=== PATIENT | male | born 1965 | race Hispanic/Latino ===

== ENCOUNTER 2017-01-01 07:41 | Emergency (ER) | payer SELFPAY ==
[2017-01-01] MEDS ORDERED: AFRIN NS ONE (08:53)
--- NOTE | 2017-01-01 09:07 | Emergency Department Report ---
ED ENT HPI - General Chief complaint: Nosebleed Stated complaint: NOSE BLEED Time Seen by Provider: 01/01/17 08:41 Source: patient, EMS, RN notes reviewed Mode of arrival: Ambulatory Limitations: No Limitations - History of Present Illness Initial comments: 51-year-old [place] [facility] [place]. Patient states he began having bleeding last night , but this spontaneously resolved. Bleeding began again this morning. He states the blood is mainly coming out of the right side of his nose. He also reports blood going down the back of his throat. He denies pain. Patient states his had multiple nosebleeds in the past. He states that he has had 2 separate procedures through his groin to stop recurrent nosebleeds. His last procedure was in October 2012. He has had no bleeding since that procedure until last night. Patient states he is on blood thinners due to the presence of a cardiac stent. There are no other complaints. MD complaint: epistaxis -: Sudden, Last night Location: nose Severity: mild Consistency: intermittent Improves with: pressure Worsens with: none Context-Epistaxis: history of similar, other (on Brilinta) - Related Data Allergies Allergy/AdvReac Type Severity Reaction Status Date / Time No Known Allergies Allergy Unverified 01/01/17 07:47 ED Dental HPI - General Chief complaint: Nosebleed Stated complaint: NOSE BLEED Time Seen by Provider: 01/01/17 08:41 Source: patient, EMS Mode of arrival: Ambulatory Limitations: No Limitations - Related Data Allergies Allergy/AdvReac Type Severity Reaction Status Date / Time No Known Allergies Allergy Unverified 01/01/17 07:47 ED Review of Systems ROS: Stated complaint: NOSE BLEED Other details as noted in HPI Comment: All other systems reviewed and negative ENT: epistaxis ED Past Medical Hx - Past Medical History Previous Medical History?: Yes Hx Hypertension: Yes Hx Heart Attack/AMI: Yes (x 2) Hx Diabetes: Yes Hx Psychiatric Treatment: Yes (depression, suicidal) Hx Dementia: Yes - Surgical History Past Surgical History?: Yes Additional Surgical History: cardiac stent, angiography for nosebleeds - Family History Family history: no significant - Social History Smoking Status: Never Smoker Substance Use Type: None ED Physical Exam - General Limitations: No Limitations General appearance: alert, in no apparent distress - Head Head exam: Present: atraumatic, normocephalic - Eye Eye exam: Present: normal appearance, PERRL, EOMI - ENT ENT exam: Present: mucous membranes moist, other (bright red blood noted in the right nostril with oozing noted. Posterior pharynx shows evidence of blood.) - Neck Neck exam: Present: normal inspection, full ROM. Absent: tenderness - Respiratory Respiratory exam: Present: normal lung sounds bilaterally. Absent: respiratory distress - Cardiovascular Cardiovascular Exam: Present: regular rate, normal rhythm, normal heart sounds - Extremities Exam Extremities exam: Present: normal inspection, full ROM - Back Exam Back exam: Present: normal inspection, full ROM - Neurological Exam Neurological exam: Present: alert, oriented X3. Absent: motor sensory deficit - Skin Skin exam: Present: warm, dry, intact ED Course Vital Signs 01/01/17 01/01/17 01/01/17 07:54 07:57 08:55 Temperature 98.1 F Pulse Rate 70 Respiratory 18 18 Rate Blood Pressure Blood Pressure 152/76 [Left] Blood Pressure [Right] O2 Sat by Pulse 98 98 98 Oximetry 01/01/17 01/01/17 01/01/17 09:00 09:08 10:00 Temperature 97.8 F Pulse Rate 74 Respiratory 18 Rate Blood Pressure 125/59 129/60 Blood Pressure [Left] Blood Pressure 116/67 [Right] O2 Sat by Pulse 97 97 98 Oximetry 01/01/17 11:00 Temperature Pulse Rate Respiratory Rate Blood Pressure 132/66 Blood Pressure [Left] Blood Pressure [Right] O2 Sat by Pulse 98 Oximetry ED Medical Decision Making - Lab Data Result diagrams: 01/01/17 09:01 - Medical Decision Making Laboratory results reviewed and discussed with the patient. Patient was initially dosed with nasal Afrin. Direct pressure was applied, but the patient kept removing the gauze packing. He would continue to have occasional oozing of blood from the right nostril. The right nostril was packed using Merocel. This has stopped the bleeding. Patient will be discharged back to [facility] at this time. He'll be instructed to hold his anticoagulated until the packing is removed. Patient is instructed to return to the emergency department in 72 hours for packing removal. - Differential Diagnosis epistaxis, anemia, coagulopathy Critical care attestation.: If time is entered above; I have spent that time in minutes in the direct care of this critically ill patient, excluding procedure time. ED Disposition Clinical Impression: Epistaxis Disposition: [id number] PSY HOSP/PSY UNIT Is pt being admited?: No Condition: Stable Instructions: Epistaxis (ED) Additional Instructions: Do not take your anticoagulate medication until the packing is removed. Return to the emergency department on Thursday, January 04 to have the packing removed. Referrals: PRIMARY CARE, [Primary Care Provider] - 3-5 Days Time of Disposition: 16:06
[2017-01-01 09:15] LABS: Eosinophils % (Auto) 3.1 % (0.0-4.3); Hemoglobin 9.3 gm/dl (11.8-15.2); Mean Corpuscular HGB Conc 32 % (32-34); Mean Corpuscular Volume 78 fl (84-94); Platelet Count 208 K/mm3 (140-440); Red Blood Count 3.72 M/mm3 (3.65-5.03); Red Cell Distribution Width 15.1 % (13.2-15.2); White Blood Count 3.7 K/mm3 (4.5-11.0)
[2017-01-01 09:19] LABS: Mean Corpuscular Hemoglobin 25 pg (28-32)
[2017-01-01 09:43] LABS: INR 1.03 (0.87-1.13)
[2017-01-01 11:06] LABS: Partial Thromboplastin Time 29.7 Sec. (24.2-36.6)
[2017-01-01] MEDS ORDERED: ATIVAN ONE (11:42)
[2017-01-01 11:57] VITALS: BP 132/66
== END 2017-01-01 18:02 ==
LOC: ED 07:41 → EEVIPCON 07:41 → ED 18:02
DX: R04.0 Epistaxis (principal); I10 Essential (primary) hypertension; I25.2 Old myocardial infarction; E11.9 Type 2 diabetes mellitus without complications
CPT/HCPCS: 36415; 85025; 85610; 85730; 99283

== ENCOUNTER 2017-01-04 14:16 | Emergency (ER) | payer SELFPAY ==
[2017-01-04 21:59] VITALS: BP 161/89
== END 2017-01-04 23:15 | disposition left against medical advice (07) ==
LOC: ED 14:16
DX: R04.0 Epistaxis (principal); F03.90 Unspecified dementia, unspecified severity, without behavioral disturbance, psychotic disturbance, mood disturbance, and anxiety; E11.9 Type 2 diabetes mellitus without complications; I25.2 Old myocardial infarction; I10 Essential (primary) hypertension; F32.9 Major depressive disorder, single episode, unspecified; Z53.21 Procedure and treatment not carried out due to patient leaving prior to being seen by health care provider